=== PATIENT | male | born 1950 | race Caucasian/White ===

== ENCOUNTER 2022-10-18 15:05 | Outpatient (CLI) | payer MEDICAID, SELFPAY | END 2022-10-18 15:06 | disposition home or self-care (01) | PROVIDERS: Visit Provider Emergency Medicine Emergency Medical Services | DX: S79.912A Unspecified injury of left hip, initial encounter (principal); W01.0XXA Fall on same level from slipping, tripping and stumbling without subsequent striking against object, initial encounter; Y92.71 Barn as the place of occurrence of the external cause | CPT/HCPCS: A0425; A0427 ==